=== PATIENT | female | born 1965 | race Two or more races ===

== ENCOUNTER 2019-11-27 18:25 | Emergency (ER) | payer MEDICAID ==
[~2019-11-27] VITALS: Ht 149.9 cm; Wt 63.5 kg
--- NOTE | 2019-11-27 19:20 | NUR ---
BIBS FOR C/O BILAT EARACHE. ALSO NOTED W/ HIGH BP PER PT SHE IS HYPERTENSIVE AND TAKES MEDICATION FOR HIGH BP . SHE IS DUE FOR ANOTHER DOSE THIS EVENING. DENIED CP.
[2019-11-27] MEDS ORDERED: predniSONE 20 MG TABLET PO ONE (19:30)
[2019-11-27] MEDS ORDERED: OMEPRAZOLE 20 MG CAPSULE.DR PO ONE (19:30)
[2019-11-27] MEDS ORDERED: ALBUTEROL FS 2.5 MG/3 ML VIAL.NEB NEB ONE (19:30)
[2019-11-27] MEDS ORDERED: predniSONE 20 MG TABLET ONE (19:33)
[2019-11-27] MEDS ORDERED: ALBUTEROL FS 2.5 MG/3 ML VIAL.NEB ONE (19:46)
[2019-11-27] MEDS ORDERED: LIDOCAINE VISCOUS 2% UD 15 ML UDC MM ONE (20:00)
[2019-11-27] MEDS ORDERED: LIDOCAINE VISCOUS 2% UD 15 ML UDC ONE (20:00)
[2019-11-27] MEDS ORDERED: MAG HYDROX/AL HYDROX/SIMETH 30 ML UDC ONE (20:00)
[2019-11-27] MEDS ORDERED: MAG HYDROX/AL HYDROX/SIMETH 30 ML UDC PO ONE (20:00)
[2019-11-27] MEDS ORDERED: FAMOTIDINE (20 MG) 20 MG TABLET ONE (20:00)
[2019-11-27] MEDS ORDERED: FAMOTIDINE (20 MG) 20 MG TABLET PO ONE (20:00)
--- NOTE | 2019-11-27 20:57 | NUR ---
Patient discharged to home in stable condition. Rx and Written and verbal after care instructions given. Patient verbalizes understanding of instruction.
[2019-11-27 21:07] VITALS: BP 143/80
== END 2019-11-27 20:57 | disposition home or self-care (01) ==
LOC: ER 18:35
DX: J20.9 Acute bronchitis, unspecified (principal); I10 Essential (primary) hypertension; K21.9 Gastro-esophageal reflux disease without esophagitis; Z90.49 Acquired absence of other specified parts of digestive tract; Z98.890 Other specified postprocedural states
CPT/HCPCS: 71045; 94640; 99284; J7512

== ENCOUNTER 2019-12-12 10:46 | Emergency (ER) | payer MEDICAID ==
[~2019-12-12] VITALS: Ht 144.8 cm; Wt 68.0 kg
[2019-12-12 10:52] VITALS: BP 164/102
--- NOTE | 2019-12-12 11:49 | NUR ---
PT. VERBALIZED UNDERSTANDING OF AFTERCARE INSTRUCTIONS.Patient discharged to home in stable condition. Written and verbal after care instructions given. Patient verbalizes understanding of instruction.
== END 2019-12-12 11:50 | disposition home or self-care (01) ==
LOC: ER 10:49
DX: J20.9 Acute bronchitis, unspecified (principal); H69.83 Other specified disorders of Eustachian tube, bilateral; F17.200 Nicotine dependence, unspecified, uncomplicated; I10 Essential (primary) hypertension; K21.9 Gastro-esophageal reflux disease without esophagitis; Z90.49 Acquired absence of other specified parts of digestive tract; Z98.890 Other specified postprocedural states

== ENCOUNTER 2020-06-03 12:22 | Emergency (ER) | payer MEDICAID ==
[~2020-06-03] VITALS: Ht 152.4 cm; Wt 77.1 kg
--- NOTE | 2020-06-03 12:30 | NUR ---
"Back Pain. I have sciatica/back pain. Lifted bag ice yesterday" tyo ER bed 4, hooked to monitor, change to hosp gown, warm blanket provided, Dr Hoover at bedside
[2020-06-03] MEDS ORDERED: MORPHINE SULFATE INJ 2 MG/ML DISP.SYRIN IM ONE (13:00)
[2020-06-03] MEDS ORDERED: KETOROLAC TROMETHAMINE INJ 60 MG/2 ML VIAL IM ONE (13:00)
[2020-06-03] MEDS ORDERED: KETOROLAC TROMETHAMINE INJ 30 MG/ML VIAL ONE (13:11)
[2020-06-03] MEDS ORDERED: MORPHINE SULFATE INJ 4 MG/ML DISP.SYRIN ONE (13:12)
[2020-06-03] MEDS ORDERED: MORPHINE SULFATE INJ 2 MG/ML DISP.SYRIN ONE (13:12)
--- NOTE | 2020-06-03 13:21 | NUR ---
Patient discharged to home in stable condition. Written and verbal after care instructions given. Patient verbalizes understanding of instruction.
--- NOTE | 2020-06-03 13:21 | NUR ---
Insytructed not to drive, family at waiting room
[2020-06-03 13:22] VITALS: BP 138/89
== END 2020-06-03 13:23 | disposition home or self-care (01) ==
LOC: ER 12:26
DX: M54.41 Lumbago with sciatica, right side (principal); I10 Essential (primary) hypertension; K21.9 Gastro-esophageal reflux disease without esophagitis; Z90.49 Acquired absence of other specified parts of digestive tract; Z98.890 Other specified postprocedural states
CPT/HCPCS: 96372 ×2; 99284; J1885; J2270 ×2

== ENCOUNTER 2020-09-14 19:33 | Emergency (ER) | payer MEDICAID ==
[~2020-09-14] VITALS: Ht 149.9 cm; Wt 76.2 kg
[2020-09-14] MEDS ORDERED: METOCLOPRAMIDE HCL 10 MG/2 ML VIAL IV ONE (21:30)
[2020-09-14] MEDS ORDERED: KETOROLAC TROMETHAMINE INJ 30 MG/ML VIAL IV ONE (21:30)
[2020-09-14] MEDS ORDERED: DEXAMETHASONE SOD PHOSPHATE 10 MG/ML VIAL IV ONE (21:30)
[2020-09-14] MEDS ORDERED: DEXAMETHASONE SOD PHOSPHATE 10 MG/ML VIAL ONE (21:45)
[2020-09-14] MEDS ORDERED: METOCLOPRAMIDE HCL 10 MG/2 ML VIAL ONE (21:46)
[2020-09-14] MEDS ORDERED: KETOROLAC TROMETHAMINE INJ 30 MG/ML VIAL ONE (21:46)
--- NOTE | 2020-09-14 22:04 | NUR ---
Patient discharged to home in stable condition. Written and verbal after care instructions given. Patient verbalizes understanding of instruction. Pt denies pain, vss.
--- NOTE | 2020-09-14 22:04 | NUR ---
IV removed. Catheter intact and site benign. Pressure and 4x4 applied to site. No bleeding noted.
--- NOTE | 2020-09-14 22:04 | NUR ---
PT MEDICATED, BIBSELF ORIGONALLY C/O HEADACHE X1 DAY. LIGHTS TURNED OFF, PT KEPT COMFORTABLE AND RESTING.
[2020-09-14 22:05] VITALS: BP 141/81
--- NOTE | 2020-09-14 22:19 | NUR ---
Patient discharged to home in stable condition. Written and verbal after care instructions given. Patient verbalizes understanding of instruction. Pt ambulated with steady gait. vss.
== END 2020-09-14 22:19 | disposition home or self-care (01) ==
LOC: ER 19:33
DX: G43.909 Migraine, unspecified, not intractable, without status migrainosus (principal); R11.0 Nausea; K21.9 Gastro-esophageal reflux disease without esophagitis; I10 Essential (primary) hypertension; Z90.49 Acquired absence of other specified parts of digestive tract; Z98.890 Other specified postprocedural states
CPT/HCPCS: 96374; 96375; 99284; J1100; J1885; J2765

== ENCOUNTER 2020-10-15 14:21 | Emergency (ER) | payer MEDICAID ==
[~2020-10-15] VITALS: Ht 149.9 cm; Wt 77.1 kg
[2020-10-15 14:37] VITALS: BP 117/59
--- NOTE | 2020-10-15 15:00 | NUR ---
CALLED MAIN LAB FOR COVID KIT.
--- NOTE | 2020-10-15 15:10 | NUR ---
COVID SPECIMEN OBTAINED AND SENT TO LAB.
--- NOTE | 2020-10-15 15:18 | NUR ---
Patient discharged to home in stable condition. Written and verbal after care instructions given. Patient verbalizes understanding of instruction.
== END 2020-10-15 15:19 | disposition home or self-care (01) ==
LOC: ER 14:26
DX: B34.9 Viral infection, unspecified (principal); Z20.828 Contact with and (suspected) exposure to other viral communicable diseases; Z90.49 Acquired absence of other specified parts of digestive tract; I10 Essential (primary) hypertension; K21.00 Gastro-esophageal reflux disease with esophagitis, without bleeding; G43.909 Migraine, unspecified, not intractable, without status migrainosus
CPT/HCPCS: 99283; C9803; U0003

== ENCOUNTER 2020-10-15 20:28 | Emergency (ER) | payer MEDICAID ==
[~2020-10-15] VITALS: Ht 149.9 cm; Wt 77.1 kg
[2020-10-15] MEDS ORDERED: ACETAMINOPHEN ES 500 MG TABLET ONE (21:28)
[2020-10-15] MEDS ORDERED: ACETAMINOPHEN ES 500 MG TABLET PO ONE (21:30)
[2020-10-15] MEDS ORDERED: IV NS 0.9% 1,000 ML BAG IV ONE (21:30)
--- NOTE | 2020-10-15 21:30 | NUR ---
BIB FROM HOME TO ER BED 7. AAOX4. NOT IN RESP DISTRESS, BREATHING EVEN AND UNLABORED AMBULATORY. CAME IN FOR GEN BODY ACHE AND FATIGUE. PT REPORTS THAT SHE MIGHT HAVE HAD CONTACT WITH HIS COUSIN WHO IS SICK. PROVIDER WAS AT THE BEDSIDE FOR EVAL. ORDERS RECEIVED NOTED AND CARRIED OUT. IV LINE ESTABLISHED ON L AC 18G.
[2020-10-15 22:51] VITALS: BP 156/96
--- NOTE | 2020-10-15 22:51 | NUR ---
Patient discharged to home in stable condition. Written and verbal after care instructions given. Patient verbalizes understanding of instruction.IV removed. Catheter intact and site benign. Pressure and 4x4 applied to site. No bleeding noted. Pt ambulatory with a steady gait
== END 2020-10-15 22:52 | disposition home or self-care (01) ==
LOC: ER 20:33
DX: B34.9 Viral infection, unspecified (principal); E86.0 Dehydration; G43.909 Migraine, unspecified, not intractable, without status migrainosus; I10 Essential (primary) hypertension; K21.9 Gastro-esophageal reflux disease without esophagitis; Z90.49 Acquired absence of other specified parts of digestive tract; Z98.890 Other specified postprocedural states
CPT/HCPCS: 96360; 99283; J7030

== ENCOUNTER 2021-04-23 12:13 | Emergency (ER) | payer MEDICAID ==
[~2021-04-23] VITALS: Ht 149.9 cm; Wt 77.1 kg
[2021-04-23 12:24] VITALS: BP 150/105
[2021-04-23] MEDS ORDERED: HYDR-3972 PO (12:36)
[2021-04-23] MEDS ORDERED: KETOROLAC TROMETHAMINE INJ 60 MG/2 ML VIAL IM ONE ×2 (12:39→13:00)
--- NOTE | 2021-04-23 12:50 | NUR ---
Patient discharged to home in stable condition. Written and verbal after care instructions given. Patient verbalizes understanding of instruction.
== END 2021-04-23 12:50 | disposition home or self-care (01) ==
LOC: ER 12:13
DX: M54.41 Lumbago with sciatica, right side (principal); G43.909 Migraine, unspecified, not intractable, without status migrainosus; I10 Essential (primary) hypertension; K21.9 Gastro-esophageal reflux disease without esophagitis; F17.200 Nicotine dependence, unspecified, uncomplicated; Z90.49 Acquired absence of other specified parts of digestive tract; Z98.890 Other specified postprocedural states
CPT/HCPCS: 96372; 99283; J1885

== ENCOUNTER 2021-08-22 11:32 | Emergency (ER) | payer MEDICAID ==
[~2021-08-22] VITALS: Ht 147.3 cm; Wt 74.8 kg
[~2021-08-22 11:32] MED LIST: HYDR-3972 PO
--- NOTE | 2021-08-22 11:51 | NUR ---
THE PATIENT BIBS FOR CHRONIC BACK PAIN GOT WORSE SINCE YESTERDAY. THE PATIENT RATES PAIN 10/10. IN ROOM AIR AND DENIES SOB. RESPIRATION REGULAR AND UNLABORED. WILL CONTINUE TO MONITOR THE PATIENT.
[2021-08-22 12:50] LABS: BASOPHILS % (AUTO) 0.4 % (0.0-2.0); EOSINOPHILS % (AUTO) 0.2 % (0.0-6.0); HEMATOCRIT 22 % (33-45); LYMPHOCYTES # (AUTO) 2.6 K/uL (0.8-4.8); LYMPHOCYTES % (AUTO) 26.5 % (20.0-44.0); MEAN CORPUSCULAR HGB CONC 31 g/dl (31.0-36.0); MEAN CORPUSCULAR VOLUME 71 fL (82-100); MONOCYTES # (AUTO) 0.5 K/uL (0.1-1.30); NEUTROPHILS # (AUTO) 6.7 K/uL (1.8-8.9); NEUTROPHILS % (AUTO) 67.9 % (43.0-81.0); PLATELET COUNT (AUTO) 509 K/uL (150-450); RED BLOOD CELL COUNT(AUTO) 3.17 MIL/uL (4.0-5.2); WHITE BLOOD COUNT (AUTO) 9.8 K/uL (4.3-11.0)
[2021-08-22 12:53] LABS: HEMOGLOBIN 6.9 g/dL (11.5-14.8)
--- NOTE | 2021-08-22 12:57 | NUR ---
THE PATIENT IS TAKEN TO CT
[2021-08-22 12:59] LABS: CALCIUM, SERUM 8.8 mg/dL (8.5-10.1); CREATININE 1.1 mg/dL (0.6-1.3)
[2021-08-22 13:05] LABS: ALBUMIN 3.2 g/dL (3.4-5.0); BILIRUBIN,DIRECT 0.1 mg/dL (0.0-0.2); BILIRUBIN,TOTAL 0.2 mg/dL (0.2-1.0); TOTAL PROTEIN, SERUM 6.7 g/dL (6.4-8.2)
--- NOTE | 2021-08-22 13:20 | NUR ---
COVI SWAB DONE AND SENT TO THE LAB
[2021-08-22] MEDS ORDERED: HYDROCODONE/APAP 5/325MG TABLET PO ONE (14:00)
[2021-08-22] MEDS ORDERED: HYDROCODONE/APAP 5/325MG TABLET ONE (14:15)
[2021-08-22 15:13] LABS: BAND % (MANUAL) 1 % (0.0-5.0); LYMPHOCYTES % (MANUAL) 17 % (16-48); MONOCYTES % (MANUAL) 2 % (0-11.0); NEUTROPHILS % (MANUAL) 80 (42-76)
[2021-08-22] MEDS ORDERED: HYDR-3976 GT (16:06)
[2021-08-22 16:14] VITALS: BP 145/82
--- NOTE | 2021-08-22 16:14 | NUR ---
Patient discharged to home in stable condition. Written and verbal after care instructions given. Patient verbalizes understanding of instruction.
== END 2021-08-22 16:14 | disposition home or self-care (01) ==
LOC: ER 11:39
DX: M25.552 Pain in left hip (principal); D64.9 Anemia, unspecified; I10 Essential (primary) hypertension; K21.9 Gastro-esophageal reflux disease without esophagitis; G89.29 Other chronic pain; M54.40 Lumbago with sciatica, unspecified side; Z20.822 Contact with and (suspected) exposure to COVID-19; Z86.69 Personal history of other diseases of the nervous system and sense organs
CPT/HCPCS: 36415; 72131; 73090; 73503; 74176; 80048; 80076; 85007; 85025; 87426; 99285; C9803; 73502

== ENCOUNTER 2022-11-11 15:04 | Emergency (ER) | payer MEDICAID ==
[~2022-11-11] VITALS: Ht 149.9 cm; Wt 68.0 kg
[~2022-11-11 15:04] MED LIST changes: +HYDR-3976 GT
--- NOTE | 2022-11-11 15:56 | NUR ---
DR BURGESS AT BEDSIDE
[2022-11-11] MEDS ORDERED: ACETAMINOPHEN ES 500 MG TABLET ONE (17:03)
[2022-11-11] MEDS ORDERED: ACETAMINOPHEN ES 500 MG TABLET PO ONE (17:30)
--- NOTE | 2022-11-11 18:03 | NUR ---
Patient discharged to home in stable condition. Written and verbal after care instructions given. Patient verbalizes understanding of instruction.
[2022-11-11 18:05] VITALS: BP 129/80
== END 2022-11-11 18:05 | disposition home or self-care (01) ==
LOC: ER 15:08
DX: S06.0XAA Concussion with loss of consciousness status unknown, initial encounter (principal); I10 Essential (primary) hypertension; G43.909 Migraine, unspecified, not intractable, without status migrainosus; K21.9 Gastro-esophageal reflux disease without esophagitis; Z90.49 Acquired absence of other specified parts of digestive tract; Z79.899 Other long term (current) drug therapy; W18.30XA Fall on same level, unspecified, initial encounter; Y93.89 Activity, other specified; Y92.89 Other specified places as the place of occurrence of the external cause; Y99.8 Other external cause status
CPT/HCPCS: 70450-TC; 72125-TC